=== PATIENT | male | born 2000 | race Caucasian/White ===

== ENCOUNTER 2023-06-11 10:01 | Outpatient (CLI) | payer BC, SELFPAY ==
--- NOTE | 2023-06-11 10:15 | US_ITS ---
Patient: ROSSY SEAMAN Facility:?[facility] Patient ID:?[id number] Site Patient ID:?[id number]. Site :?1998 Study:?US-Testicle -06/11/2023 11:44:49 AM Ordering Physician:Bruce Jacobsen Final Report: CLINICAL HISTORY: Palpable mass left scrotum TECHNIQUE: Gil scale imaging was performed of the scrotum. In addition color Doppler and spectral Doppler analysis was performed of the testes. FINDINGS: The right testis measures 4.3 x 2.2 x 2.9 in size and the left testis measures 3.7 x 2 x 2.5 cm. The epididymis appears normal bilaterally. No intratesticular mass. Normal blood flow to both testes. A few tiny echogenic foci, subtle could be related to microlithiasis on the left small left hydrocele. There is an echogenic lesion measuring 0.4 x 0.7 x 0.6 centimeters that abuts the superior aspect of the left testis either exophytic off the left testis or extratesticular. IMPRESSION: 1. Normal blood flow to both testes. A few tiny echogenic foci in the left testis may represent subtle microlithiasis. Epididymis unremarkable. 0.4 x 0.7 x 0.6 centimeter echogenic rounded lesion abutting the superior aspect of the left testis, favor extratesticular, indeterminate possibly could be related to a scrotal diya. Recommend urology consultation and follow-up. Dictated by Carie Vasquez MD @ 06/12/2023 6:47:12 PM Signed by:?Carie Vasquez MD @06/12/2023 6:47:12 PM (Electronic Signature)
== END 2023-06-11 10:02 | disposition home or self-care (01) ==
LOC: US 10:02
PROVIDERS: PCP Family Medicine; Visit Provider Family Medicine
DX: N50.89 Other specified disorders of the male genital organs (principal)
CPT/HCPCS: 76870; 93976

== ENCOUNTER 2023-07-14 09:47 | Outpatient (CLI) | payer BC, SELFPAY | END 2023-07-14 09:48 | disposition home or self-care (01) | PROVIDERS: PCP Family Medicine; Visit Provider Family Medicine | DX: E78.00 Pure hypercholesterolemia, unspecified (principal); R29.818 Other symptoms and signs involving the nervous system; Z13.228 Encounter for screening for other metabolic disorders; Z13.29 Encounter for screening for other suspected endocrine disorder | CPT/HCPCS: 80053; 80061; 84443 ==

== ENCOUNTER 2023-07-22 12:45 | Outpatient (CLI) | payer BC, SELFPAY ==
--- OUTSIDE RECORDS SUMMARY | 2023-07-22 12:48 | XMS_ITS | Data Portability ---
Author Name Unknown Address [address] [place] [address] Phone [phone] Organization [facility], [facility] Address [address] [place] [address] Assessment Encounter Date Assessment Date Assessment LastModified by Organization Details LastModified Time 07/08/2023 07/08/2023 22 year old male with left extratesticular mass [email or web address] Not available 07/08/2023 09:45:53 Plan of Treatment Reminders Order Date Submit Date Provider Last Modified By Organization Details Last Modified Time Details Appointments None recorded. Lab None recorded. Referral None recorded. Procedures None recorded. Surgeries None recorded. Imaging US, scrotum - FOR August [facility] Radiology Department, [address] [place], [address], 04:18:15 Medication Orders None recorded. Patient TargetsNo targets recorded. Patient InstructionsNo instructions recorded. Reason for Referral None Reported. Medical Equipment None Reported. Allergies No known drug allergies Medications Name Sig Start Date Stop Date Status Note LastModified by Organization Details LastModified Time penicillin V potassium 500 mg tablet TAKE 1 TABLET BY MOUTH FOUR TIMES A DAY UNTIL FINISHED 07/07 completed Not Available Not Available Not Available lorazepam 0.5 mg tablet TAKE 1-2 TABS ORALLY EVERY DAY AT BEDTIME NEEDED FOR SLEEP active Not Available Not Available No t Available escitalopra m 10 mg tablet TAKE 1 TABLET BY MOUTH EVERY DAY active Not Available Not Available No t Available Vitals Date Recorded Body height Body mass index (BMI) Body weight Provider Name and Address Organization Details Last Updated DateTime 07/08/2023 177.8 cm 23.7 kg/m2 18012.74 g Susan silva, [facility] 07/08/2023 12:00:34 Social History Question Answer Notes LastModified by Organizat ion Details LastModified Time Tobacco Smoking Status Never Smoker Susan silva, [facility] 07/08/2023 12:01:18 What Is Your Level Of Alcohol Consumption? None Information not available 07/08/2023 What Is Your Level Of Caffeine Consumption? Moderate Information not available 07/08/2023 What Was The Date Of Your Most Recent Tobacco Screening? 07/08/2023 Information not available 07/08/2023 Do You Use Any Illicit Or Recreational Drugs? No Information not available 07/08/2023 Do You Or Have You Ever Used Any Other Forms Of Tobacco Or Nicotine? No Information not available 07/08/2023 Sex: Male Functional Status None recorded. Mental Status None recorded. Family History Relationship Description Onset Age of this Age Resolved Age Notes Father No current problems or disability Mother No current problems or disability Medical History Condition Response Diabetes N Sexually Transmitted Infection N Other N Bleeding Disorder N High Blood Pressure N Kidney Stones N Cancer N Lung Disease N Depression N High Cholesterol N GERD/Acid Reflux N Heart Disease N Immunizations Vaccine Type Date Status Provider Name and Address Organization Details Recorded Time [facility], unspecified [facility] 12:00:42 Hib, unspecified formulation 01/07/1999 completed Susan silva [facility] 07/08/2023 12:00:42 Hib-Hep B 09/13/1999 completed Susan silva [facility] 07/08/2023 12:00:42 IPV 03/25/1999 completed Susan silva [facility] 07/08/2023 12:00:43 [facility]09[facility] 12:00:43 influenza, recombinant, quadrivalent,inject able, preservative free 12/18/2020 completed Susan silva [facility] 07/08/2023 12:00:43 influenza, live, intranasal 12/06/2008 completed [facility] null, [facility] 07/08/2023 12:00:43 influenza, live, intranasal 01/16/2011 completed Susan Stromquist null, [facility] 07/08/2023 12:00:43 MMR 09/13/1999 completed Susan Stromquist null, [facility] 07/08/2023 12:00:43 MMR 10/09/2003 completed Susan Stromquist null, [facility] 07/08/2023 12:00:43 COVID-19, mRNA, LNP-S, PF, 30 mcg/0.3 mL dose 07/05/2020 completed Susan Stromquist null, [facility] 07/08/2023 12:00:43 COVID-19, mRNA, LNP-S, PF, 30 mcg/0.3 mL dose 07/26/2020 completed Susan Stromquist null, [facility] 07/08/2023 12:00:43 COVID-19, mRNA, LNP-S, PF, 30 mcg/0.3 mL dose 03/02/2021 completed Susan Stromquist null, [facility] 07/08/2023 12:00:43 pneumococcal conjugate PCV 7 12/13/1999 completed Susan Stromquist null, [facility] 07/08/2023 12:00:43 pneumococcal conjugate PCV 7 03/04/2000 completed Susan Stromquist null, [facility] 07/08/2023 12:00:43 influenza, unspecified formulation 01/15/2006 completed Susan Stromquist null, [facility] 07/08/2023 12:00:43 Tdap 07/09/2020 completed Susan Stromquist null, [facility] 07/08/2023 12:00:43 Tdap 07/30/2010 completed Susan Stromquist null, [facility] 07/08/2023 12:00:43 polio, unspecified formulation 1998 completed Susan Stromquist null, [facility] 07/08/2023 12:00:43 polio, unspecified formulation 01/07/1999 completed Susan Stromquist null, [facility] 07/08/2023 12:00:43 Influenza, seasonal, injectable 12/12/2003 completed Susan Stromquist null, [facility] 07/08/2023 12:00:43 Influenza, seasonal, injectable 01/24/2003 completed Susan Stromquist null, [facility] 07/08/2023 12:00:43 Hep A, ped/adol, 2 dose 07/06/2007 completed Susan Stromquist null, [facility] 07/08/2023 12:00:43 Hep A, ped/adol, 2 dose 07/21/2008 completed Susan Stromquist null, [facility] 07/08/2023 12:00:43 typhoid, ViCPs 08/27/2017 completed Susan Stromquist null, [facility] 07/08/2023 12:00:43 Hib (PRP-T) 03/25/1999 completed Susan Stromquist null, [facility] 07/08/2023 12:00:43 Meningococcal MCV4O 11/14/2014 completed Susan Stromquist null, [facility] 07/08/2023 12:00:43 meningococcal MCV4P 07/30/2010 completed Susan Stromquist null, [facility] 07/08/2023 12:00:43 DTaP 03/25/1999 completed Susan Stromquist null, [facility] 07/08/2023 12:00:43 DTaP 10/09/2003 completed Susan Stromquist null, [facility] 07/08/2023 12:00:43 DTaP 1998 [facility] 07/08/2023 12:00:43 DTaP 01/07/1999 completed Susan Stromquist null, [facility] 07/08/2023 12:00:43 DTaP 03/04/2000 completed Susan Stromquist null, [facility] 07/08/2023 12:00:43 Past Encounters Encounter ID Performer Location Encounter Start Date Encounter Closed Date Diagnosis/Indication Diagnosis SNOMED-CT Code [id number] Artemio Barnett MD [facility] [address] [place] [id number] 07/08/2023 11:51:12 07/08/2023 14:14:13 Scrotal mass [id number] Health Concerns Section Related Observation LastModified by Organization Detai ls LastModified Time None Recorded Concern Status LastModified by Organization Details LastModified Time None Recorded Advance Directives Directive None Recorded Payers Encounter Date Sequence Insurance Name Policy Number Policy Ernandez Covered Member ID Ernandez Member ID Guarantor Name 07/08/2023 1 [employer]: [employer]U [employer] (PPO) [id number] [address] Jeffery [id number] [address] Notes Date Note Type Note Provider Name and Address Organization Details Recorded Time 07/08/2023 text/html HPI Notes: Mr. Gil is a very pleasant 22 year old male who is referred to me by his PCP, Dr. Bruce Lal, regarding left testicular lump. Patient first noted something 2-3 months ago. Patient underwent a scrotal us dated 06/12/2023... images pushed to [facility] for my review and interpretation. Superior to the left testis but it is unclear if it is within the testis or adjacent. Artemio Barnett MD [address], [place], [address], [facility] 07/08/2023 13:39:43
--- OUTSIDE RECORDS SUMMARY | 2023-07-22 12:48 | XMS_ITS | Continuity of Care Document ---
Author Name Unknown Address [address] [place] [address] Phone [phone] Organization [facility], [facility] Address [address] [place] [address] Assessment Encounter Date Assessment Date Assessment LastModified [...] recorded. Imaging US, scrotum - FOR August [facility] Radiology Department, [address] [place], [address], 04:18:15 Medication Orders None recorded. Patient TargetsNo [...] Updated DateTime 07/08/2023 177.8 cm 23.7 kg/m2 97098.74 g Susan Radha silva [facility] 07/08/2023 12:00:34 Social History Question Answer Notes LastModified by Organizat ion Details LastModified Time Tobacco Smoking Status Never Smoker Susan Radha silva, [facility] 07/08/2023 12:01:18 What Is Your Level Of [...] problems or disability Medical History Condition Response Sexually Transmitted Infection N Diabetes N Other N Bleeding Disorder N High Blood Pressure N Kidney Stones N High Cholesterol N GERD/Acid Reflux N Heart Disease N Cancer N Depression N Lung Disease N Immunizations Vaccine Type Date Status Provider Name and Address Organization Details Recorded Time Hib, unspecified formulation 1998 completed Susan silva [facility] 07/08/2023 12:00:42 Hib, unspecified formulation 01/07/1999 completed Susan silva [facility] 07/08/2023 12:00:42 Hib-Hep B 09/13/1999 completed Susan silva [facility] 07/08/2023 12:00:42 IPV 03/25/1999 completed Susan silva [facility] 07/08/2023 12:00:43 IPV 10/09/2003 completed Susan silva [facility] 07/08/2023 12:00:43 influenza, recombinant, quadrivalent,inject able, preservative free 12/18/2020 completed Susan silva [facility] 07/08/2023 12:00:43 influenza, live, intranasal 12/06/2008 completed Susan Stromquist null, [facility] 07/08/2023 12:00:43 influenza, live, intranasal 01/16/2011 completed Susan Stromquist null, [facility] 07/08/2023 12:00:43 MMR 09/13/1999 completed Susan Stromquist null, [facility] 07/08/2023 12:00:43 MMR 10/09/2003 completed Susan Stromquist null, [facility] 07/08/2023 12:00:43 COVID-19, mRNA, LNP-S, PF, 30 mcg/0.3 mL dose 07/05/2020 completed Susan Stromquist null, [facility] 07/08/2023 12:00:43 COVID-19, mRNA, LNP-S, PF, 30 mcg/0.3 mL dose 07/26/2020 completed Susan Stromquist null, [facility] 07/08/2023 12:00:43 COVID-19, mRNA, LNP-S, PF, 30 mcg/0.3 mL dose 03/02/2021 completed Susan Stromquist null, [facility] 07/08/2023 12:00:43 pneumococcal conjugate PCV 7 12/13/1999 completed Susan Stromquist null, [facility] 07/08/2023 12:00:43 pneumococcal conjugate PCV 7 03/04/2000 completed Susan Stromquist null, [facility] 07/08/2023 12:00:43 influenza, unspecified formulation 01/15/2006 completed Susan Stromquist null, [facility] 07/08/2023 12:00:43 Tdap 07/09/2020 completed Susan Stromquist null, [facility] 07/08/2023 12:00:43 Tdap 07/30/2010 completed Susan Stromquist null, [facility] 07/08/2023 12:00:43 polio, unspecified formulation 1998 completed Susan Stromquist null, [facility] 07/08/2023 12:00:43 polio, unspecified formulation 01/07/1999 completed Susan Stromquist null, [facility] 07/08/2023 12:00:43 Influenza, seasonal, injectable 12/12/2003 completed Susan Stromquist null, [facility] 07/08/2023 12:00:43 Influenza, seasonal, injectable 01/24/2003 completed Susan Stromquist null, [facility] 07/08/2023 12:00:43 Hep A, ped/adol, 2 dose 07/06/2007 completed Susan Stromquist null, [facility] 07/08/2023 12:00:43 Hep A, ped/adol, 2 dose 07/21/2008 completed Susan Stromquist null, [facility] 07/08/2023 12:00:43 typhoid, ViCPs 08/27/2017 completed Susan Stromquist null, [facility] 07/08/2023 12:00:43 Hib (PRP-T) 03/25/1999 completed Susan Stromquist null, [facility] 07/08/2023 12:00:43 Meningococcal MCV4O 11/14/2014 completed Susan Stromquist null, [facility] 07/08/2023 12:00:43 meningococcal MCV4P 07/30/2010 completed Susan Stromquist null, [facility] 07/08/2023 12:00:43 DTaP 03/25/1999 completed Susan Stromquist null, [facility] 07/08/2023 12:00:43 DTaP 10/09/2003 completed Susan Stromquist null, [facility] 07/08/2023 12:00:43 DTaP 1998 completed Susan Stromquist null, [facility] 07/08/2023 12:00:43 DTaP 01/07/1999 completed Susan Stromquist null, [facility] 07/08/2023 12:00:43 DTaP 03/04/2000 completed Susan Stromquist null, [facility] 07/08/2023 12:00:43 Past Encounters Encounter ID Performer Location Encounter Start Date Encounter Closed Date Diagnosis/Indication Diagnosis SNOMED-CT Code [id number] Artemio Barnett MD [facility] [address] [place] [id number] 07/08/2023 11:51:12 07/08/2023 14:14:13 Scrotal mass [id number] Health Concerns Section Related Observation LastModified by Organization Detai ls LastModified Time None Recorded Concern Status LastModified by Organization Details LastModified Time None Recorded Payers Encounter Date Sequence Insurance Name Policy Number Policy Ernandez Covered Member ID Ernandez Member ID Guarantor Name 07/08/2023 1 [employer]: ANTHEM [employer] (PPO) [id number] [address] Jeffery [id number] [address] Notes Date Note Type [...] the testis or adjacent. Artemio Barnett MD [address] [place] [address],[address], [place], [address], [facility] 07/08/2023 13:39:43
--- NOTE | 2023-07-22 13:00 | MR_ITS ---
Patient: ROSSY SEAMAN Facility:?[facility] Patient ID:?[id number] Site Patient ID:?[id number]. Site :?1998 Study:?MRI-Head W/O-07/22/2023 2:54:01 PM Ordering Physician:WILFREDO BHANDARI Final Report: Indication: Sleep and memory issues. Technique: Noncontrast sagittal T1, axial FLAIR, T2, diffusion weighted sequences are provided. No comparisons. Findings: The ventricles, sulci and gyri are normal size, shape and contour for age. The midline structures are centrally located with no evidence of shift. There are no suspicious intra or extra-axial fluid collections. No region of restricted diffusion. Expected flow voids in the cavernous carotids and basilar artery. Impression: 1. No radiographic evidence of acute intracranial abnormalities. Dictated by Raheel Espino MD @ 07/22/2023 6:05:07 PM Signed by:?Raheel Espino MD @07/22/2023 6:05:07 PM (Electronic Signature)
== END 2023-07-22 12:46 | disposition home or self-care (01) ==
LOC: MRI 12:46
PROVIDERS: PCP Family Medicine; Visit Provider Family Medicine
DX: R29.818 Other symptoms and signs involving the nervous system (principal)
CPT/HCPCS: 70551